=== PATIENT | male | born 1990 | race African-American/Black ===

== ENCOUNTER 2017-06-30 01:10 | Emergency (ER) | payer SELFPAY ==
[~2017-06-30] VITALS: Ht 177.8 cm; Wt 88.5 kg
--- NOTE | 2017-06-30 01:24 | PHYS DOC ---
Adult General Chief Complaint Chief Complaint: SEXUALLY TRANSMITTED DISEASE HPI HPI Patient is a 26 year old -[place] male who presents with. He states been off the last 5-7 days. He states his head chlamydia in the past. He states he's been sexual active without using condoms. He denies any dysuria, he denies any fevers chills nausea or vomiting. Review of Systems Review of Systems Constitutional: Denies fever or chills [] Eyes: Denies change in visual acuity, redness, or eye pain [] HENT: Denies nasal congestion or sore throat [] Respiratory: Denies cough or shortness of breath [] Cardiovascular: No additional information not addressed in HPI [] GI: Denies abdominal pain, nausea, vomiting, bloody stools or diarrhea [] : Denies dysuria or hematuria, positive for penile discharge Musculoskeletal: Denies back pain or joint pain [] Integument: Denies rash or skin lesions [] Neurologic: Denies headache, focal weakness or sensory changes [] Endocrine: Denies polyuria or polydipsia [] Current Medications Current Medications Current Medications Medications (Trade) Dose Ordered Sig/Demetra Start Time Stop Time Status Last Admin Dose Admin Azithromycin (Zithromax) 1,000 mg 1X ONCE 06/30/17 01:45 06/30/17 01:46 UNV Ceftriaxone Sodium (Rocephin Im) 250 mg 1X ONCE 06/30/17 01:45 06/30/17 01:46 UNV Allergies Allergies Allergies Coded Allergies Type Severity Reaction Last Updated Verified No Known Drug Allergies 06/30/17 No Physical Exam Physical Exam Constitutional: Well developed, well nourished, no acute distress, non-toxic appearance. [] HENT: Normocephalic, atraumatic, bilateral external ears normal, oropharynx moist, no oral exudates, nose normal. [] Eyes: PERRLA, EOMI, conjunctiva normal, no discharge. [] Neck: Normal range of motion, no tenderness, supple, no stridor. [] Cardiovascular:Heart rate regular rhythm, no murmur [] Lungs & Thorax: Bilateral breath sounds clear to auscultation [] Abdomen/genital: Bowel sounds normal, soft, no tenderness, no masses, no pulsatile masses. Genital exam shows circumcised penis without any lesions, purulent discharge at the meatus noted Skin: Warm, dry, no erythema, no rash. [] Back: No tenderness, no CVA tenderness. [] Extremities: No tenderness, no cyanosis, no clubbing, ROM intact, no edema. [] Neurologic: Alert and oriented X 3, normal motor function, normal sensory function, no focal deficits noted. [] Psychologic: Affect normal, judgement normal, mood normal. [] Current Patient Data Vital Signs Vital Signs Date Time Temp Pulse Resp B/P (MAP) Pulse Ox O2 Delivery O2 Flow Rate FiO2 06/30/17 01:26 97.9 81 16 98 Room Air 97.9 EKG EKG [] Radiology/Procedures Radiology/Procedures [] Impressions: Penile discharge Course & Med Decision Making Course & Med Decision Making Pertinent Labs and Imaging studies reviewed. (See chart for details) His history and physical is consistent with an STD. We will treat with 250 Rocephin IM 1 in addition to thousand azithromycin. Urine, GC, chlamydia PCR ordered. Patient being discharged and instructed to use safe sex. He is agreeable plan being discharged stable condition at this time. Dragon Disclaimer Dragon Disclaimer This electronic medical record was generated, in whole or in part, using a voice recognition dictation system. Departure Departure Impression: Primary Impression: Sexually transmitted infection Disposition: HOME, SELF-CARE Condition: STABLE Patient Instructions: Safe Sex Additional Instructions: You were treated for chlamydia and gonorrhea. Your urine is being analyzed in the lab and we should know in the next few days if you actually had chlamydia or gonorrhea. If your symptoms don't improve over the next 3-5 days, he developed fevers, pain on urination we have other concerns please return back to emergency department. You need to practice safe sex, always wear condoms. MANJINDER LEVIN MD Jun 30, 2017 01:24
[2017-06-30 01:26] VITALS: BP 134/77
[2017-06-30 01:50] LABS: BILIRUBIN,URINE NEGATIVE (NEG); GLUCOSE,URINE NEGATIVE (NEG); NITRITE,URINE NEGATIVE (NEG); PROTEIN,URINE NEGATIVE (NEG-TRACE); UROBILINOGEN,URINE 0.2 mg/dL (0.2 mg/dL)
[2017-06-30 01:54] LABS: RBC,URINE OCC /HPF (0-2)
[2017-06-30 01:55] LABS: BACTERIA,URINE 0 /HPF (0-FEW); SQUAMOUS EPITHELIAL CELL,UR OCC /LPF
[2017-06-30] MEDS ORDERED: AZITHROMYCIN 250 MG TABLET. PO ONE (02:00)
[2017-06-30] MEDS ORDERED: cefTRIAXone IM 250 MG VIAL IM ONE (02:00)
--- NOTE | 2017-07-02 11:50 | VNOTE ---
CALL BACK NOTE CALL BACK Microbiology 06/30/17 Urine Culture - Preliminary, Resulted 06/30/17 Urine Culture Result 1 (IVONNE) - Preliminary, Resulted Contacted patient at his home phone number [phone]. He was notified that his chlamydia test was positive. Patient had been treated here in the emergency department. He was instructed to notify his partners in regards to positive chlamydia test. Recommended avoiding sexual intercourse for the next 2 weeks. Also recommended same-sex information. AMY DELGADILLO LIVING MANAGER Jul 02, 2017 11:50
== END 2017-06-30 02:20 | disposition home or self-care (01) ==
LOC: ER 01:10
DX: A64 Unspecified sexually transmitted disease (principal)
CPT/HCPCS: 81001; 87086; 87491; 87591; 96372; 99284; J0696; Q0144